=== PATIENT | female | born 1980 | race Caucasian/White ===

== ENCOUNTER → 2025-06-26 09:07 | Outpatient (REF) | payer BC, SELFPAY | LOC: RAD 09:07 | PROVIDERS: ATTENDING PHYSICIAN Nurse Practitioner Family; FAMILY PHYSICIAN Internal Medicine | DX: E83.52 Hypercalcemia (principal); E34.9 Endocrine disorder, unspecified | CPT/HCPCS: 78071; A9500 ==

== ENCOUNTER → 2025-07-12 08:36 | Outpatient (REF) | payer BC, SELFPAY ==
[2025-07-12 08:54] VITALS: BP 108/76; BP_SYST 65
== END ==
LOC: RADI 08:36
PROVIDERS: ATTENDING PHYSICIAN Nurse Practitioner Family; FAMILY PHYSICIAN Internal Medicine
DX: E04.1 Nontoxic single thyroid nodule (principal)
CPT/HCPCS: 10005; 88173